=== PATIENT | female | born 1980 | race Caucasian/White ===

== ENCOUNTER 2019-02-15 12:19 | Outpatient (CLI) | payer BC ==
--- NOTE | 2019-02-15 12:41 | RAD ---
RADIOGRAPH CHEST 2 VIEWS: DATE: 02/15/2019 HISTORY: 38-year-old female with cough FINDINGS: The lungs are clear. The cardiomediastinal silhouette and hilar shadows appear normal. There is no pl eural effusion or pneumothorax. No osseous abnormality is identified. IMPRESSION: Normal
== END 2019-02-15 12:20 | disposition home or self-care (01) ==
LOC: BICRAD 12:19
PROVIDERS: ATTEND Allergy & Immunology
DX: R05 Cough (principal)
CPT/HCPCS: 71046

== ENCOUNTER 2019-08-28 05:23 | Emergency (ER) | payer BC ==
[2019-08-28 05:57] LABS: #Basophils 0.1 thou/uL (0.0-0.2); #Eosinphils 0.2 thou/uL (0.0-0.7); #Monocytes 0.6 thou/uL (0.11-0.59); %Eosinophils 3.1 % (0.0-10.0); %Lymphocytes 25.3 % (21.0-51.0); %Monocytes 7.4 % (0.0-10.0); %Neutrophils 63.3 % (42.0-75.0); Hemoglobin 14.5 g/dL (12.0-16.0); Mean Corpuscular HGB CONC 32.9 g/dL (32.0-36.0); Mean Corpuscular Hemoglobin 29.6 pg (27.0-31.0); Mean Corpuscular Volume 89.8 fL (78.0-98.0); Mean Platelet Volume 6.8 fL (7.4-10.4); Platelet Count 378 thou/uL (130-400); RBC Distribution Width 12.4 % (11.5-14.5); Red Blood Cell (RBC) Count 4.91 mill/uL (4.20-5.40); White Blood Cell (WBC) Count 7.8 thou/uL (4.8-10.8)
[2019-08-28 06:03] LABS: BHCG - Serum Negative (NEGATIVE); Pregs Control Background? CLEAR/WHITE (CLR/WHITE); Pregs Control Bar Appear? YES (CONTROL BAR)
[2019-08-28] MEDS ORDERED: Ketorolac Tromethamine 30 MG/ML VIAL ONE (06:11)
[2019-08-28] MEDS ORDERED: Ondansetron ODT 4 MG TAB ONE (06:11)
[2019-08-28 06:20] LABS: Bacteria/HPF None Seen HPF (None Seen); Bilirubin Negative (Negative); Blood, Urine 3+ (Negative); Clarity Clear (Clear); Glucose, Urine (Dipstick) Normal (Negative); Leukocyte Negative Leu/uL (Negative); Nitrite Negative (Negative); Protein, Urine (Dipstick) 50 mg/dL (Neg-Trace); Urobilinogen Normal mg/dL (Less than 2); WBC/HPF 0-3 HPF (0-3)
[2019-08-28 06:21] LABS: ALT (SGPT) 26 U/L (8-55); AST (SGOT) 19 U/L (5-34); Albumin 4.3 g/dL (3.5-5.0); Alkaline Phosphatase 67 U/L (40-110); Anion Gap 13 mmol/L (10-20); BUN (Urea Nitrogen) 15 mg/dL (7.0-18.7); Bilirubin, Total 0.7 mg/dL (0.2-1.2); Calc. Creatinine Clearance 0 mL/min (70-130); Carbon Dioxide 27 mmol/L (22-29); Chloride 105 mmol/L (98-107); Estimated GFR-MDRD 64; Glucose 109 mg/dL (70-105); Protein, Total 8.3 g/dL (6.0-8.3); Sodium 141 mmol/L (136-145)
--- NOTE | 2019-08-28 08:21 | CT ---
PRELIMINARY REPORT/[facility]/EMERGENCY AFTER HOURS PROCEDURE EXAM: CT Abdomen and Pelvis Without Intravenous Contrast CLINICAL HISTORY: [id number] TECHNIQUE: Axial computed tomography images of the abdomen and pelvis without intravenous contrast. CONTRAST: None. COMPARISON: None provided. FINDINGS: LUNG BASES: No basilar airspace consolidation or pleural effusion. LIVER: 1.1 cm left hepatic lobe cyst. GALLBLADDER AND BILE DUCTS: Unremarkable. No calcified stone. No ductal dilation. PANCREAS: Unremarkable. SPLEEN: Unremarkable. ADRENAL GLANDS: Unremarkable. KIDNEYS, URETERS, AND BLADDER: 5 mm stone in the distal left ureter just proximal to the left uretero vesical junction with mild left hydroureteronephrosis. Bilateral nonobstructing renal stones measuring up to 7 mm in the mid left kidney. STOMACH AND BOWEL: No obstruction. No wall thickening. No CT evidence of colitis or acute diverticuli tis. APPENDIX: Normal appendix. PERITONEUM: No free fluid. No free air. LYMPH NODES: No lymphadenopathy. REPRODUCTIVE: Unremarkable as visualized. VASCULATURE: No aortic aneurysm. ABDOMINAL WALL AND SOFT TISSUES: Unremarkable. BONES: No fracture or suspicious osseous abnormality. IMPRESSION: 5 mm stone in the distal left ureter just proximal to the left ureterovesical junction with mild left hydroureteronephrosis. Bilateral nonobstructing renal stones measuring up to 7 mm in the mid left kidney. ELECTRONICALLY SIGNED BY: Laure Pollack MD Aug 28, 2019 6:53:33 AM [employer] This report is intended for review by the ordering physician only, in accordance of law. If you recei ve this report in error, please call [facility] at [phone]. FINAL REPORT CT Stone Protocol History: Flank pain Comparison: None. Findings: Lung bases are clear. No pericardial effusion. Moderate left hydroureteronephrosis due to p artially obstructing distal left ureteral calculus. Impression: Findings and impression are concordant with the preliminary report. Transcribed Date/Time: 08/28/2019 8:41 AM
== END 2019-08-28 07:05 | disposition home or self-care (01) ==
LOC: ERS 05:23
DX: N13.2 Hydronephrosis with renal and ureteral calculous obstruction (principal); M19.90 Unspecified osteoarthritis, unspecified site; F41.9 Anxiety disorder, unspecified; F32.9 Major depressive disorder, single episode, unspecified; Z87.891 Personal history of nicotine dependence
CPT/HCPCS: 36415; 74176; 80053; 81003; 81015; 84703; 85025; 96372; J1885; Q0162

== ENCOUNTER 2019-09-29 06:32 | Outpatient (CLI) | payer BC ==
[2019-09-29 10:55] LABS: Hemoglobin 14.2 g/dL (12.0-16.0); Mean Corpuscular HGB CONC 32.6 g/dL (32.0-36.0); Mean Corpuscular Hemoglobin 29.5 pg (27.0-31.0); Mean Corpuscular Volume 90.6 fL (78.0-98.0); Mean Platelet Volume 6.7 fL (7.4-10.4); Platelet Count 373 thou/uL (130-400); RBC Distribution Width 12.3 % (11.5-14.5); Red Blood Cell (RBC) Count 4.82 mill/uL (4.20-5.40); White Blood Cell (WBC) Count 7.1 thou/uL (4.8-10.8)
[2019-09-29 11:04] LABS: PTT 31.5 SEC (22.9-36.1); Prothrombin Time 13.2 SEC (12.0-14.7)
[2019-09-29 11:05] LABS: Bacteria/HPF None Seen HPF (None Seen); Bilirubin Negative (Negative); Blood, Urine 1+ (Negative); Clarity Clear (Clear); Glucose, Urine (Dipstick) Normal (Negative); Leukocyte Negative Leu/uL (Negative); Nitrite Negative (Negative); Protein, Urine (Dipstick) 20 mg/dL (Neg-Trace); RBC/HPF 0-3 HPF (0-3); Squamous Epithelial 0-3 HPF (0-3); Urobilinogen Normal mg/dL (Less than 2); WBC/HPF 0-3 HPF (0-3)
[2019-09-29 11:18] LABS: BHCG - Serum Negative (NEGATIVE); Pregs Control Background? CLEAR/WHITE (CLR/WHITE); Pregs Control Bar Appear? YES (CONTROL BAR)
[2019-09-29 11:27] LABS: Anion Gap 11 mmol/L (10-20); BUN (Urea Nitrogen) 18 mg/dL (7.0-18.7); Calc. Creatinine Clearance 0 mL/min (70-130); Calcium 8.6 mg/dL (7.8-10.44); Carbon Dioxide 25 mmol/L (22-29); Chloride 106 mmol/L (98-107); Estimated GFR-MDRD 72; Glucose 98 mg/dL (70-105); Potassium 3.8 mmol/L (3.5-5.1); Sodium 138 mmol/L (136-145)
== END 2019-09-29 06:33 | disposition home or self-care (01) ==
LOC: LABBT 06:32
PROVIDERS: ATTEND Urology
DX: Z01.818 Encounter for other preprocedural examination (principal); N20.0 Calculus of kidney; N39.3 Stress incontinence (female) (male); E66.01 Morbid (severe) obesity due to excess calories; Z68.42 Body mass index [BMI] 45.0-49.9, adult
CPT/HCPCS: 80048; 81001; 84703; 85027; 85610; 85730; 87086; 93005; 93010

== ENCOUNTER 2019-10-06 13:45 | Day surgery (SDC) | payer BC ==
[2019-09-29 09:43] VITALS: BMI 47.7
[~2019-10-06 13:45] MED LIST: Dexamethasone 20 MG/5 ML VIAL ONE; Lidocaine 1% PF 5 ML VIAL ONE; Ondansetron PF 4 MG/2 ML Vial ONE; PROPOFOL 200 MG/20 ML VIAL ONE; Rocuronium Bromide 10 MG/ML (10ML VIAL) ONE; diphenhydrAMINE 50 MG/ML VIAL ONE
[2019-10-06] MEDS ORDERED: Levofloxacin 500 mg/D5W 100 ml Premix Bag ONE (14:37)
[2019-10-06] MEDS ORDERED: Iothalamate Meglumine 60% 50 ML VIAL FS ONE (17:58)
[2019-10-06] MEDS ORDERED: Fentanyl 100 MCG/2 ML VIAL ONE ×2 (18:02→20:21)
[2019-10-06] MEDS ORDERED: Midazolam HCl 2 mg/2 ml Vial ONE (18:02)
[2019-10-06] MEDS ORDERED: SUGAMMADEX SODIUM 500 MG/5 ML VIAL ONE (19:13)
[2019-10-06] MEDS ORDERED: SUGAMMADEX SODIUM 200 MG/2 ML VIAL ONE (19:13)
[2019-10-06] MEDS ORDERED: Promethazine HCl 25 MG/ML VIAL ONE (19:57)
[2019-10-06] MEDS ORDERED: Ondansetron PF 4 MG/2 ML Vial ONE (20:09)
--- NOTE | 2019-10-06 20:44 | OP ---
DATE OF PROCEDURE: 10/06/2019 SERVICE: Urology. PREOPERATIVE DIAGNOSIS: Bilateral nephrolithiasis. POSTOPERATIVE DIAGNOSIS: Bilateral nephrolithiasis. PROCEDURE PERFORMED: Right ureteroscopy, laser lithotripsy, basket extraction of stones, right retrograde pyelogram, and placement of a 6 x 26 double-J stent. INDICATIONS FOR PROCEDURE: Ms. Huff is a 39-year-old white female with bilateral nephrolithiasis. She has a larger 6 mm stone on the right with several smaller stones on the left. She elected to undergo ureteroscopy with removal of the stones. Risks and benefits were discussed and she has agreed to proceed forward. DESCRIPTION OF PROCEDURE: After identification of armband and verification of consent, the patient was brought back to the operating room, where she underwent general anesthesia with endotracheal intubation. She was then placed in the dorsal lithotomy position and prepped and draped in the usual sterile fashion. After appropriate time-out, a lubricated 22-Libyan rigid cystoscope was introduced per urethra into the bladder. Attention was turned to the right ureteral orifice, which was cannulated with a 0.035 Sensor wire up to the level of renal pelvis. The cystoscope was then removed and a dual-lumen catheter was advanced over the Sensor wire up to the level of the proximal ureter. Amplatz Super Stiff wire was then passed through the second lumen of the dual-lumen catheter up to the level of the renal pelvis. The dual-lumen was then removed and a Sensor wire was affixed to the drapes as a safety wire. A 11/13 x 36 cm ureteral access sheath was then advanced over the Amplatz Super Stiff wire up to the level of the proximal ureter. The inner cannula and the Super Stiff wire were then removed leaving the outer sheath and Sensor wire in place. A flexible digital ureteroscope was then passed through the ureteral access sheath up into the proximal ureter and into the kidney. A full pyeloscopy was performed. There were stones within each calyx with the largest stones in the mid calices. Using a 200 micron ball-tip laser fiber, the stones were fragmented into smaller pieces. Upon completion, a 1.9-Libyan [place] basket was used to remove the pieces of stone individually until all stone fragments were removed. Upon completion, the only stone fragments remaining were 1 mm in size or less. Remainder pyeloscopy did not demonstrate any additional stone fragments. Pull-back ureteroscopy was employed and there were no additional stones within the ureter. However, there was some mucosal splitting in the distal ureter likely where dilation had occurred secondary to the ureteral access sheath. As such, I did feel it was necessary to leave the stent for approximately 2 weeks to allow for proper healing done to avoid ureteral stricture formation. The sheath and wire were completely removed and the 6 x 26 double-J stent was loaded over the Sensor wire and guided under fluoroscopic control into position. The wire was removed leaving a good curl in the kidney and a good curl in the bladder. The obturator for the 22-Libyan sheath was used to drain the bladder and then the patient was taken out of lithotomy, awakened and taken to PACU for recovery in stable condition. COMPLICATIONS: None. ESTIMATED BLOOD LOSS: Minimal. RETAINED TUBES AND DRAINS: A 6 x 26 double-J stent on the right. SPECIMENS: Stone for stone analysis. DISPOSITION: The patient will be discharged home and follow up with me in approximately 2 weeks for cystoscopy and stent removal. Job ID: [id number]
[2019-10-06] MEDS ORDERED: Metoclopramide HCl 10 MG/2 ML VIAL ONE (21:16)
[2019-10-06] MEDS ORDERED: HYDROcodone/Acetaminophen 5/325 mg Tablet ONE (21:37)
== END 2019-10-06 21:49 | disposition home or self-care (01) ==
LOC: SDC 13:45
PROVIDERS: ATTEND Urology
PROC: 0T768DZ Dilation of Right Ureter with Intraluminal Device, Via Natural or Artificial Opening Endoscopic (ICD-10-PCS; principal; 2019-10-06)
PROC: 0TF38ZZ Fragmentation in Right Kidney Pelvis, Via Natural or Artificial Opening Endoscopic (ICD-10-PCS; principal; 2019-10-06)
DX: N20.0 Calculus of kidney (principal); F32.9 Major depressive disorder, single episode, unspecified; N39.3 Stress incontinence (female) (male); E66.01 Morbid (severe) obesity due to excess calories; M19.90 Unspecified osteoarthritis, unspecified site; Z68.42 Body mass index [BMI] 45.0-49.9, adult; Z79.899 Other long term (current) drug therapy; Z87.891 Personal history of nicotine dependence; Z88.8 Allergy status to other drugs, medicaments and biological substances
CPT/HCPCS: 76000; 82365; 88300; C1769; J1100; J1200; J1956; J2001; J2250; J2405; J2550; J2704; J2765; J3010